=== PATIENT | female | born 1970 | race Caucasian/White ===

== ENCOUNTER 2017-10-13 15:47 | Emergency (ER) | payer BC ==
[~2017-10-13] VITALS: Ht 172.7 cm; Wt 104.5 kg
[~2017-10-13 15:47] MED LIST: Ambien PO; DEPAKOTE ER (E500 MG PO; ESOMEPRAZOLE MA40 MG PO; GEODON20 MG PO; GEODON60 MG PO; HEARTBURN150 MG PO; LEXAPRO20 MG PO; LIPITOR20 MG PO; NICOTINE PATCH1 EAC2 TD; PROTONIX40 MG PO; TRILEPTAL600 MG PO; VENTOLIN HFA18 GM IH; VITAMIN C1000 MG PO; ZANTAC75 MG PO; ZYBAN 150 MG T150 MG PO
[2017-10-13] MEDS ORDERED: MOTRIN600 MG PO (16:46)
[2017-10-13 17:00] VITALS: BP 130/87
== END 2017-10-13 17:01 | disposition home or self-care (01) ==
LOC: EME 15:47
DX: S63.502A Unspecified sprain of left wrist, initial encounter (principal); W10.9XXA Fall (on) (from) unspecified stairs and steps, initial encounter; F17.200 Nicotine dependence, unspecified, uncomplicated
CPT/HCPCS: 73110; 99281; 99284

== ENCOUNTER 2017-11-11 19:11 | Emergency (ER) | payer OTHER, BC ==
[~2017-11-11] VITALS: Ht 172.7 cm; Wt 103.1 kg
[~2017-11-11 19:11] MED LIST changes: +MOTRIN600 MG PO
[2017-11-11 20:35] LABS: APPEARANCE CLOUDY ((CLEAR)); BILIRUBIN NEGATIVE; BLOOD NEGATIVE; COLOR AMBER ((YELLOW)); GLUCOSE (STRIP) NEGATIVE; KETONES NEGATIVE; LEUKOCYTES NEGATIVE; NITRITE NEGATIVE; PROTEIN (STRIP) NEGATIVE; SPECIFIC GRAVITY 1.017 (1.000-1.030); UROBILINOGEN 0.2 MG/DL (0.2-1.0)
[2017-11-11 20:48] LABS: BACTERIA NONE SEEN /HPF; EPITHELIAL CELLS RARE /HPF; HYALINE CASTS 0-5 /LPF; MUCUS TRACE /LPF; UCUL ADDED? NO; WHITE BLOOD CELLS 0-5 /HPF (0-5)
[2017-11-11 21:29] VITALS: BP 132/85
== END 2017-11-11 21:30 | disposition home or self-care (01) ==
LOC: EME 19:11
PROVIDERS: Emergency Medicine
DX: S06.0X9A Concussion with loss of consciousness of unspecified duration, initial encounter (principal); W22.8XXA Striking against or struck by other objects, initial encounter; Y92.69 Other specified industrial and construction area as the place of occurrence of the external cause; Y99.0 Civilian activity done for income or pay
CPT/HCPCS: 70450; 74176; 81003; 99281; 99284; J1885; J2765